=== PATIENT | male | born 1965 | race Caucasian/White ===

== ENCOUNTER 2019-05-19 06:59 | Day surgery (SDC) | payer OTHER ==
[2019-05-19 08:34] VITALS: TEMP 97.6
[2019-05-19 09:18] VITALS: PULSE 60
[2019-05-19 09:19] VITALS: BP 104/74
== END 2019-05-19 09:08 | disposition home or self-care (01) ==
LOC: JASU-ENDO 06:59
PROVIDERS: ATTEND Internal Medicine Gastroenterology
PROC: 0DJD8ZZ Inspection of Lower Intestinal Tract, Via Natural or Artificial Opening Endoscopic (ICD-10-PCS; principal; 2019-05-19 08:00)
DX: Z12.11 Encounter for screening for malignant neoplasm of colon (principal); Z83.71 Family history of colonic polyps; K57.20 Diverticulitis of large intestine with perforation and abscess without bleeding; K64.8 Other hemorrhoids